=== PATIENT | male | born 1955 | race Caucasian/White ===

== ENCOUNTER → 2016-05-31 | Outpatient (CLI) | payer OTHER ==
[~2016-05-31] MED LIST: FLOMAX0.4 MG PO; SOMA350 MG PO
== END | disposition home or self-care (01) ==
LOC: CDC 08:20
DX: Z01.810 Encounter for preprocedural cardiovascular examination (principal); Q24.9 Congenital malformation of heart, unspecified; L73.2 Hidradenitis suppurativa
CPT/HCPCS: 93000

== ENCOUNTER 2016-06-04 05:28 | Day surgery (SDC) | payer OTHER ==
[~2016-06-04] VITALS: Ht 185.4 cm; Wt 80.2 kg
[2016-06-04 05:55] VITALS: BP 131/68
[2016-06-04] MEDS ORDERED: PERCOCET 5/31 TABLET PO (08:43)
[2016-06-04] MEDS ORDERED: COLACE100 MG PO (08:43)
[2016-06-04] MEDS ORDERED: MOTRIN600 MG PO (08:43)
[2016-06-04 09:41] VITALS: BP 133/62
[2016-06-04 10:44] VITALS: BP 100/66
[2016-06-04] MEDS ORDERED: VICODIN 5-3001 EACH PO (10:59)
[2016-06-04] MEDS ORDERED: NORCO 5/3251 TABLET PO (11:00)
== END 2016-06-04 11:15 | disposition home or self-care (01) ==
LOC: SDC
PROC: 0HB8XZZ Excision of Buttock Skin, External Approach (ICD-10-PCS; principal; 2016-06-04)
DX: L72.0 Epidermal cyst (principal); J44.9 Chronic obstructive pulmonary disease, unspecified; F17.200 Nicotine dependence, unspecified, uncomplicated
CPT/HCPCS: 88304; J0690; J1100; J1170; J2250; J2405; J2710; J3010